=== PATIENT | female | born 1995 | race Caucasian/White ===

== ENCOUNTER 2020-12-30 13:05 | Outpatient (REF) | payer BC, SELFPAY ==
[2021-01-01 12:41] LABS: COVID-19 RT-PCR UVMMC Result Negative (Negative)
== END 2020-12-30 13:06 | disposition home or self-care (01) ==
LOC: LBN 13:05
PROVIDERS: PCP Family Medicine; Visit Provider Nurse Practitioner Family
DX: Z20.822 Contact with and (suspected) exposure to COVID-19 (principal); J06.9 Acute upper respiratory infection, unspecified
CPT/HCPCS: U0003

== ENCOUNTER 2021-07-02 18:33 | Outpatient (REF) | payer BC, SELFPAY ==
[2021-07-02 21:59] LABS: HCT 44.7 % (36.0-46.0); HGB 14.9 g/dL (11.2-15.7); MCH 30.6 pg (27.0-33.0); MCHC 33.3 % (32.0-36.0); MCV 91.8 fL (80-95); MPV 11.4 fL (8.0-11.0); Platelet Count 194 10^3/uL (130-400); RBC 4.87 10^6/uL (3.93-5.22); RDW 12.3 % (11.7-14.6); RDW-SD 41.5 fL; WBC 6.56 10^3/uL (4.4-10.8)
[2021-07-02 22:41] LABS: Vitamin D 25 Total 35.6 ng/mL (30-100)
[2021-07-02 22:43] LABS: Anion Gap 9.4 mmol/L (3-11); BUN 10 mg/dL (7-18); CO2 26.6 mmol/L (21.0-32.0); CREATININE 0.9 mg/dL (0.55-1.02); Calcium 9.3 mg/dL (8.5-10.1); Chloride 103 mmol/L (98-107); Glucose 92 mg/dL (74-106); Sodium 139 mmol/L (136-145); Vitamin B12 327 pg/mL (193-986)
[2021-07-02 23:04] LABS: TSH (W/Ref FT4) 1.08 uIU/mL (0.36-3.74)
== END 2021-07-02 18:34 | disposition home or self-care (01) ==
LOC: NCHCN 18:33
PROVIDERS: PCP Family Medicine; Visit Provider Nurse Practitioner Family
DX: F32.9 Major depressive disorder, single episode, unspecified (principal); F41.9 Anxiety disorder, unspecified
CPT/HCPCS: 80048; 82306; 85027; 82607; 84443

== ENCOUNTER 2021-07-27 16:20 | Outpatient (REF) | payer BC, SELFPAY ==
--- NOTE | 2021-07-27 15:10 | PAPFT_PTH ---
PATIENT: Delfina Tse LOC: [facility]#:[id number] AGE/SX: 25/F ROOM: RE07/27/[address]: Maryse Moreno : 1995 BED: DIS: 07/27/2021 SPEC #: [id number] RECD: 07/28/21 13:00 STATUS: LIZETH REMatthew #: [id number] GAYLE: 07/27/21 15:[address]: Maryse Moreno DEPT: [facility] Cytology RECD BY: Balbina Cortez ENTERED: 07/28/21 13:00 SP TYPE: PAPFT OTHR DR: Alin Santana Tissues: 1 - CX/ENDOCX FOR PAP SMEARS Procedures: PAP THIN PREP/[facility] Screening HPV DNA PROBE Comments: [id number] (CHLAMYDIA/GC)
[2021-07-29 15:26] LABS: Chlamydia Result Negative (Negative); GC Result Negative (Negative)
== END 2021-07-27 16:21 | disposition home or self-care (01) ==
LOC: NCHCN 16:20
PROVIDERS: PCP Family Medicine; Visit Provider Family Medicine
DX: Z12.4 Encounter for screening for malignant neoplasm of cervix (principal); Z11.3 Encounter for screening for infections with a predominantly sexual mode of transmission; R87.610 Atypical squamous cells of undetermined significance on cytologic smear of cervix (ASC-US); Z11.51 Encounter for screening for human papillomavirus (HPV)
CPT/HCPCS: 87491; 87591; 88142; 87624